=== PATIENT | female | born 1970 | race Caucasian/White ===

== ENCOUNTER 2019-02-28 17:04 | Outpatient (REF) | payer BC, SELFPAY ==
[2019-02-28 19:32] LABS: Glucose 87 mg/dL (70-100); LDL CHOLESTEROL 88 mg/dL (<100); TSH 1.43 uIU/mL (0.358-3.74)
== END 2019-02-28 17:24 ==
LOC: NCHCN 17:04
PROVIDERS: PCP Internal Medicine; Visit Provider Internal Medicine
DX: Z00.00 Encounter for general adult medical examination without abnormal findings (principal); Z13.29 Encounter for screening for other suspected endocrine disorder; Z13.1 Encounter for screening for diabetes mellitus
CPT/HCPCS: 82947; 83721; 84443

== ENCOUNTER 2022-02-23 18:47 | Outpatient (REF) | payer BC, SELFPAY ==
[2022-02-23 19:17] LABS: HCT 45.4 % (36.0-46.0); HGB 14.9 g/dL (11.2-15.7); MCH 30.7 pg (27.0-33.0); MCHC 32.8 % (32.0-36.0); MCV 94 fL (80-95); MPV 11.1 fL (8.0-11.0); Platelet Count 357 10^3/uL (130-400); RBC 4.85 10^6/uL (3.93-5.22); RDW 12.5 % (11.7-14.6); WBC 9.12 10^3/uL (4.4-10.8)
[2022-02-23 19:39] LABS: ALT 16 U/L (14-59); AST 6 U/L (15-37); Albumin 4.7 g/dL (3.4-5.0); Alkaline Phosphatase 60 U/L (46-116); Anion Gap 10.2 mmol/L (3-11); BUN 13 mg/dL (7-18); Bilirubin, Total 0.4 mg/dL (0.2-1.0); CO2 28.8 mmol/L (21.0-32.0); CREATININE 0.9 mg/dL (0.55-1.02); Calcium 9.1 mg/dL (8.5-10.1); Calculated LDL 137 mg/dL (<100); Chloride 100 mmol/L (98-107); Cholesterol 233 mg/dL (<200); Glucose 103 mg/dL (74-106); HDL Cholesterol 71 mg/dL (40-60); Potassium 3.9 mmol/L (3.5-5.1); Sodium 139 mmol/L (136-145); TSH 0.91 uIU/mL (0.36-3.74); Total Protein 7.5 g/dL (6.4-8.2); Triglyceride 127 mg/dL (<150)
[2022-02-23 19:54] LABS: Hemoglobin A1C 5.5 % (<5.7)
[2022-02-27 11:14] LABS: Hepatitis C Ab w Rflx HCV PCR Negative (Negative)
== END 2022-02-23 18:48 | disposition home or self-care (01) ==
LOC: NCHCN 18:47
PROVIDERS: PCP Internal Medicine; Visit Provider Internal Medicine
DX: Z00.00 Encounter for general adult medical examination without abnormal findings (principal); Z86.010 Personal history of colon polyps; Z13.1 Encounter for screening for diabetes mellitus; Z13.29 Encounter for screening for other suspected endocrine disorder; Z11.59 Encounter for screening for other viral diseases; Z13.220 Encounter for screening for lipoid disorders
CPT/HCPCS: 80053; 80061; 85027; 86803; 83036; 84443

== ENCOUNTER 2023-02-28 15:54 | Outpatient (REF) | payer BC, SELFPAY ==
--- OUTSIDE RECORDS SUMMARY | 2023-02-28 15:57 | XMS_ITS | Continuity of Care Document ---
Author Name Unknown Organization [facility] Address [address] [place] [address] Care Team Providers Care Barrel Bridge Assembler Name Role Phone Yahir Perez Primary Care Physician Encounter [facility] Date(s): 02/22/23 - 02/22/[address] [id number] Discharge Disposition: Home or Self Care Attending Physician: Yahir Perez MD Admitting Physician: Yahir Perez MD Referring Physician: Yahir Perez MD Social History Social History Type Response Sex Female Patient Care team information Care Team Personnel Name: Yahir Perez MD Position: No Access Member Role: Primary Care Physician Address: Address: [address] [address]- [place] Care Team Related Persons Name: TENISHA PRUITT Address: Home [address] [facility] [place], [phone] [id number]
[2023-02-28 21:59] LABS: Hemoglobin A1C 5.2 % (<5.7)
[2023-02-28 22:10] LABS: ALT 17 U/L (14-59); AST 13 U/L (15-37); Albumin 4.1 g/dL (3.4-5.0); Alkaline Phosphatase 55 U/L (46-116); BUN 10 mg/dL (7-18); Bilirubin, Total 0.8 mg/dL (0.2-1.0); CREATININE 0.8 mg/dL (0.55-1.02); Calculated LDL 119 mg/dL (<100); Chloride 102 mmol/L (98-107); Cholesterol 200 mg/dL (<200); Estimated GFR 86.96 (mL/min/1.73m2); Folate 11.1 ng/mL (8.6-20.0); Glucose 91 mg/dL (74-106); HDL Cholesterol 72 mg/dL (40-60); Potassium 4.3 mmol/L (3.5-5.1); Sodium 138 mmol/L (136-145); Total Protein 6.7 g/dL (6.4-8.2); Triglyceride 49 mg/dL (<150)
== END 2023-02-28 15:55 | disposition home or self-care (01) ==
LOC: NCHCN 15:54
PROVIDERS: PCP Internal Medicine; Visit Provider Internal Medicine
DX: Z00.00 Encounter for general adult medical examination without abnormal findings (principal); R63.4 Abnormal weight loss; Z86.010 Personal history of colon polyps; Z90.710 Acquired absence of both cervix and uterus
CPT/HCPCS: 80053; 80061; 82746; 83036; 84443

== ENCOUNTER 2024-07-11 17:10 | Outpatient (REF) | payer BC, SELFPAY ==
[2024-07-11 19:47] LABS: Anion Gap 8.1 mmol/L (3-11); BUN 13 mg/dL (7-18); CO2 26.9 mmol/L (21.0-32.0); CREATININE 0.8 mg/dL (0.55-1.02); Calcium 9.1 mg/dL (8.5-10.1); Calculated LDL 117 mg/dL (<100); Chloride 104 mmol/L (98-107); Cholesterol 215 mg/dL (<200); Estimated GFR 86.42 (mL/min/1.73m2); Glucose 107 mg/dL (74-106); HDL Cholesterol 89 mg/dL (40-60); Sodium 139 mmol/L (136-145); Triglyceride 46 mg/dL (<150)
== END 2024-07-11 17:11 | disposition home or self-care (01) ==
LOC: NCHCN 17:10
PROVIDERS: PCP Internal Medicine; Visit Provider Internal Medicine
DX: Z00.00 Encounter for general adult medical examination without abnormal findings (principal)
CPT/HCPCS: 80048; 80061

== ENCOUNTER 2025-05-08 18:27 | Outpatient (REF) | payer BC, SELFPAY ==
[2025-05-08 19:31] LABS: Anion Gap 4.0 mmol/L (3-11); BUN 16 mg/dL (7-18); CO2 31.0 mmol/L (21.0-32.0); Calcium 9.0 mg/dL (8.5-10.1); Calculated LDL 142 mg/dL (<100); Chloride 104 mmol/L (98-107); Cholesterol 210 mg/dL (<200); Estimated GFR 100.81 (mL/min/1.73m2); Glucose 87 mg/dL (74-106); HDL Cholesterol 59 mg/dL (>or=50); Potassium 4.4 mmol/L (3.5-5.1); Sodium 139 mmol/L (136-145); TSH 0.96 uIU/mL (0.36-3.74); Triglyceride 46 mg/dL (<150)
== END 2025-05-08 18:28 | disposition home or self-care (01) ==
LOC: NCHCN 18:27
PROVIDERS: PCP Internal Medicine; Visit Provider Internal Medicine
DX: F41.1 Generalized anxiety disorder (principal); Z13.220 Encounter for screening for lipoid disorders
CPT/HCPCS: 80048; 80061; 84443